=== PATIENT | male | born 1965 | race Caucasian/White ===

== ENCOUNTER 2019-05-01 16:49 | Emergency (ER) | payer OTHER ==
[~2019-05-01] VITALS: Ht 175.3 cm; Wt 74.8 kg
== END 2019-05-01 19:08 | disposition home or self-care (01) ==
LOC: ER 16:49
DX: S62.635A Displaced fracture of distal phalanx of left ring finger, initial encounter for closed fracture (principal); W23.0XXA Caught, crushed, jammed, or pinched between moving objects, initial encounter; Y93.89 Activity, other specified; Y92.69 Other specified industrial and construction area as the place of occurrence of the external cause; Y99.8 Other external cause status

== ENCOUNTER 2020-11-14 12:08 | Emergency (ER) | payer OTHER ==
[~2020-11-14] VITALS: Ht 180.3 cm; Wt 90.7 kg
[2020-11-14] MEDS ORDERED: KETO10TA2 PO (14:28)
[2020-11-14] MEDS ORDERED: NORFLEX100MG PO (14:28)
== END 2020-11-14 14:30 | disposition home or self-care (01) ==
LOC: ER 12:08
DX: M54.5 Low back pain (principal)

== ENCOUNTER 2021-09-19 05:05 | Day surgery (SDC) | payer OTHER ==
[~2021-09-19 05:05] MED LIST: KETO10TA2 PO; NORFLEX100MG PO
== END 2021-09-19 18:00 | disposition home or self-care (01) ==
LOC: CIR.AMB 05:05
PROVIDERS: ATTEND Specialist
DX: K40.90 Unilateral inguinal hernia, without obstruction or gangrene, not specified as recurrent (principal); Z20.822 Contact with and (suspected) exposure to COVID-19